=== PATIENT | female | born 2000 | race Caucasian/White ===

== ENCOUNTER 2021-07-03 01:16 | Emergency (ER) | payer BC, SELFPAY ==
[2021-07-03] VITALS (27 sets, daily range): BP systolic 91–114; BP diastolic 63–85; PULSE 59–107; RESP 13–25; TEMP 36.3; O2SAT 96–100
--- NOTE | ~2021-07-03 | CT_ITS ---
EXAMINATION: CT brain wo con, CT cervical spine wo con EXAM DATE: 07/03/2021 01:53 INDICATION: Unwitnessed fall , confusion. Head injury. TECHNIQUE: Spiral CT of the head was performed without contrast. Axial, coronal and sagittal images were reviewed. Spiral CT of the cervical spine was performed without contrast. Axial images were rev iewed. Coronal and sagittal reformatted images were also reviewed. The dose-length product (DLP) fo r this examination was 605.33 (accession [id number]), 174.43 (accession [id number]) mGy-cm. The exposure was tailored according to patient size, and iterative reconstruction (ASIR) was used as additional dose reduction technique. There is no prior study for comparison. FINDINGS: HEAD CT: There is no acute intraparenchymal hemorrhage. No evidence of intraparenchymal brain mass l esion. No evidence of acute infarction. There is no mass effect or midline shift. There is no obstru ctive hydrocephalus suspected. There are no extra-axial collections. There are no acute calvarial f ractures. The orbits are unremarkable. Soft tissue is unremarkable. The visualized sinuses and mas toid air cells are well aerated. CERVICAL CT: There is no evidence of acute cervical fracture. The odontoid process is intact. Pre- dens space is normal. Prevertebral soft tissue is normal. There are no soft tissue abnormalities id entified. There is no disc space widening or traumatic vertebral body subluxation suspected. Verteb ral body and disc heights are well-maintained. A detailed level by level evaluation of spondylosis can be added as addendum if requested. IMPRESSION: 1. No acute intracranial findings or cervical fracture. Reviewed, dictated and finalized at location A. RTMENT OPERATIONS MANAGER IMPRESSION: 1. No acute intracranial findings or cervical fracture.
[2021-07-03] MEDS: ONDANSETRON INJ 4 MG/2 ML VIAL (01:34)
[2021-07-03] MEDS: LACTATED RINGERS 1,000 ML 999 ML IV CONT ×2 (01:34→05:45)
--- NOTE | 2021-07-03 01:34 | ED.FALL ---
HPI - Fall General Chief Complaint: Fall Stated Complaint: FALL Time Seen by Provider: 07/03/21 01:21 Source: patient, EMS and other (Friend) Mode of arrival: EMS Limitations: intoxication History of Present Illness HPI Narrative: Patient is a 21-year-old female brought in by EMS after she fell at home and possibly hit her head. Patient is intoxicated. According to her friend, roommate, she heard a loud bang and found her on the kitchen floor with all the chairs turned over. According to her friend that they been drinking at a bar tonight. Patient actively vomiting Review of Systems Review of Systems: All systems reviewed & are unremarkable except as noted in HPI and below ROS unobtainable: Yes other (Intoxicated) PMFSH Comments Past medical history: None Family history: Unknown Social history: Non-smoker, occasional EtOH use, no drug use Exam Const: General: healthy appearing, comfortable, no acute distress, well developed, alert and awake; No confusion Other: Intoxicated, vomiting HENMT: Head: normal to inspection, normocephalic and atraumatic Ears: hearing grossly normal bilaterally, TM normal on the right and TM normal on the left General nose exam: Normal external nose present, Normal nares present and No nasal discharge present Face and sinus: normal facial exam Mouth: Yes Normal oral and palatal mucosa present, Yes lip normal, Yes tongue normal and Yes oropharynx normal Throat: posterior oropharynx normal, tonsils normal and uvula midline Eyes: General: appearance normal, both eyes and all related structures Pupils: Equal, round and reactive pupils present EOM: EOMs intact bilaterally Neck: Neck: normal visual inspection Other: C-collar on Chest: Chest palpation & inspection: normal inspection of the chest Resp: Effort & Inspection: normal respiratory effort, able to speak in complete sentences, no respiratory distress and not tachypneic Auscultation: clear to auscultation bilaterally, no crackles, no rales, no rhonchi and no wheezes Cardio: Rate: regular rate Rhythm: regular rhythm GI: Inspection: normal to inspection GI Palp: No abdominal tenderness, Yes Soft to palpation, No Tenderness to palpation present (GI), No Guarding due to palpation present (GI), No Rigid due to palpation and No Rebound tenderness present Auscultation: normal bowel sounds : General: Yes no CVA tenderness Back/Spine/Pelvis: Back: no CVA tenderness Skin: General skin exam: normal color, no rashes or lesions noted, elasticity normal and turgor normal Neuro: General: oriented to person, oriented to place, oriented to time, tone normal, moves all extremities, Normal light touch and pain sensation and No confusion Cranial nerves: Yes Equal, round and reactive pupils present Sensory Exam: No Sensory deficit (Neuro) Other: Unable to fully assess a complete neuro exam since patient is intoxicated refusing to follow any commands Extrem: General: normal to inspection, full ROM and capillary refill normal Psych: Appearance: grossly normal and well kempt Speech and movement: Normal speech and movement present Thought process: Normal thought process present Insight: Good insight present (Psych) Judgement: Good judgement present (Psych) Course Vital Signs Vital signs: Vital Signs Temperature 36.3 C L 07/03/21 01:22 Pulse Rate 79 07/03/21 01:22 Respiratory Rate 25 H 07/03/21 01:22 Blood Pressure 114/85 07/03/21 01:22 Pulse Oximetry 99 07/03/21 01:22 Temperature 36.3 C L 07/03/21 01:22 Pulse Rate 75 07/03/21 06:01 Respiratory Rate 13 07/03/21 06:01 Blood Pressure 91/65 L 07/03/21 06:01 Pulse Oximetry 99 07/03/21 05:45 MDM - Fall MDM Narrative Medical decision making narrative: At 6:20 AM, patient is now alert awake and oriented x4, states that she is ready to go home. Friend was at bedside earlier states she can and once she is awake. Patient called her friend so she can be picked up. Patien
[2021-07-03 01:37] LABS: Basophils Percent Auto 0.4 % (0.2-1.2); Eosinophils Percent Auto 0.1 % (0-4.4); Hematocrit 37.4 % (37.0-47.0); Hemoglobin 13.2 g/dL (12.0-15.0); Immature Granulocyte Absolute 0.04 K/mm3 (0.00-0.031); Immature Granulocyte Percent A 0.4 % (0-0.5); Lymphocytes Absolute Auto 2.21 K/mm3 (0.9-3.2); Lymphocytes Percent Auto 23.7 % (18.3-44.2); Mean Corpuscular HGB Conc 35.3 g/dl (32-36); Mean Corpuscular Hemoglobin 31.1 pg (26-34); Mean Corpuscular Volume 88.2 fl (80-100); Mean Platelet Volume 9.3 fl (7.4-10.4); Monocytes Absolute Auto 0.5 K/mm3 (0.1-0.6); Monocytes Percent Auto 5.4 % (2.6-8.5); Neutrophils Absolute Auto 6.5 K/mm3 (1.3-6.7); Platelet Count Result 266 k/mm3 (150-375); Red Blood Count 4.24 M/mm3 (4.2-5.4); Red Cell Distribution Width 12.1 % (11.5-14.5); White Blood Count 9.3 K/mm3 (4.5-10.0)
[2021-07-03 02:22] LABS: Ethanol 261 mg/dL (<10)
[2021-07-03 02:23] LABS: Anion Gap 15 mmol/L (8-16); Blood Urea Nitrogen 6 mg/dL (7-17); Calcium 8.5 mg/dL (8.4-10.2); Carbon Dioxide 19 mmol/L (22-30); Chloride 108 mmol/L (98-107); Estimated CRCL calculation 120 ml/min; Estimated Glomerular Filt Rate > 60; Glucose 97 mg/dL (65-110); Potassium 3.8 mmol/L (3.4-5.0); Sodium 142 mmol/L (137-145)
--- NOTE | 2021-07-03 06:06 | PC.NURSE ---
contact for picker and sorter load and unload is Jill @[phone] or [phone]
== END 2021-07-03 06:35 | disposition home or self-care (01) ==
PROVIDERS: Emergency Provider Emergency Medicine
DX: F10.120 Alcohol abuse with intoxication, uncomplicated (principal); Y90.8 Blood alcohol level of 240 mg/100 ml or more; W19.XXXA Unspecified fall, initial encounter
CPT/HCPCS: 36415; 70450; 72125; 80048; 80307; 85025; 96361; 96374; 99284; J2405; J7120; L0140